=== PATIENT | female | born 1950 | race Caucasian/White ===

== ENCOUNTER 2018-05-07 10:52 | Outpatient (CLI) | payer MEDICARE, OTHER ==
[2018-05-07] MEDS ORDERED: VENL75TA PO (11:41)
[2018-05-07] MEDS ORDERED: ASCO10004 PO (11:41)
[2018-05-07] MEDS ORDERED: LORA1TAB PO (11:41)
[2018-05-07] MEDS ORDERED: CHOL3000 PO (11:41)
[2018-05-07] MEDS ORDERED: ANAS1TAB PO (11:41)
[2018-05-07] MEDS ORDERED: PRAV20TA2 PO (11:41)
[2018-05-07] MEDS ORDERED: CYAN25009 PO (11:41)
[2018-05-07] MEDS ORDERED: TRAM50TA2 PO (11:41)
== END 2018-05-14 09:50 | disposition home or self-care (01) ==
LOC: STAR 10:52
PROVIDERS: ATTEND Neurological Surgery
DX: Z01.818 Encounter for other preprocedural examination (principal); M48.02 Spinal stenosis, cervical region
CPT/HCPCS: 36415; 71046; 72052; 80053; 81001; 85025; 85610; 85730; 87086; 93005

== ENCOUNTER 2018-05-16 10:56 | Inpatient (IN) | payer MEDICARE, OTHER ==
[2018-05-07 12:00] LABS: BASOPHILS # (AUTO) 0.03 x10^3/uL (0-0.1); BASOPHILS % (AUTO) 1 % (0-1); EOSINOPHILS # (AUTO) 0.08 x10^3/uL (0-0.4); EOSINOPHILS % (AUTO) 1 % (1-7); LYMPHOCYTES # (AUTO) 1.69 x10^3/uL (1-3.4); LYMPHOCYTES % (AUTO) 27 % (22-44); MD NO; MEAN CORPUSCULAR HEMOGLOBIN 29.7 pg (27.0-34.8); MEAN CORPUSCULAR HGB CONC 33.3 g/dL (32.4-35.8); MEAN CORPUSCULAR VOLUME 89.2 fL (80-100); MEAN PLATELET VOLUME 7.2 fL (7.4-10.4); MONOCYTES # (AUTO) 0.43 x10^3/uL (0.2-0.8); MONOCYTES % (AUTO) 7 % (2-9); NEUTROPHILS # (AUTO) 4.07 x10^3/uL (1.8-6.8); NEUTROPHILS % (AUTO) 65 % (42-75); PLATELET COUNT 330 x10^3/uL (130-400); RED BLOOD COUNT 4.58 x10^6/uL (3.82-5.3); RED CELL DISTRIBUTION WIDTH 14.3 % (9.6-15.2)
[2018-05-07 12:08] LABS: INTERNATIONAL NORMALIZED RATIO 0.94 (0.93-1.1)
[2018-05-07 12:09] LABS: MICROSCOPIC AUTO
[2018-05-07 12:10] LABS: ALBUMIN 4.2 g/dL (3.4-5.0); ANION GAP 7 mmol/L (5-15); CALCIUM 9.7 mg/dL (8.5-10.1); CHLORIDE 106 mmol/L (98-107)
[2018-05-07 12:14] LABS: ALANINE AMINOTRANSFERASE 34 U/L (12-78); ALKALINE PHOSPHATASE 85 U/L (45-117); BILIRUBIN,TOTAL 0.4 mg/dL (0.2-1.0); CREATININE 0.82 mg/dL (0.55-1.02); TOTAL PROTEIN 7.4 g/dL (6.4-8.2)
[2018-05-07 12:18] LABS: CULTURE INDICATED? YES
[~2018-05-16] VITALS: Ht 170.2 cm; Wt 98.1 kg
[~2018-05-16 10:56] MED LIST: ANAS1TAB PO; ASCO10004 PO; BACITRACIN 50,000 UNIT ONE; BUPIVACAINE/PF-EPI 0.5% 1:200K ONE; CHOL3000 PO; CYAN25009 PO; LORA1TAB PO; PHENYLEPHRINE 10 MG/ML ONE; PRAV20TA2 PO; ROCURONIUM 10MG/ML,5ML ONE; SUCCINYLCHOLINE 20 MG/ML, 10ML ONE; THROMBIN 5,000 UNIT VIAL TP ONE; TRAM50TA2 PO; VANCOMYCIN 1,000 MG ONE; VENL75TA PO
[2018-05-16] MEDS ORDERED: GABAPENTIN 300 MG CAPSULE PO ONE (13:30)
[2018-05-16] MEDS ORDERED: ACETAMINOPHEN 500 MG TABLET PO ONE (13:30)
[2018-05-16] MEDS ORDERED: ONDANSETRON ODT 8 MG PO ONE (13:30)
[2018-05-16 13:40] VITALS: BP 143/77
[2018-05-16] MEDS: LACTATED RINGERS 1,000 ML IV SCH ×2 (14:08→14:13)
[2018-05-16] MEDS ORDERED: FENTANYL PF 250 MCG/5ML ONE (15:44)
[2018-05-16] MEDS ORDERED: MIDAZOLAM 1 MG/ML, 2ML ONE (15:44)
[2018-05-16] MEDS ORDERED: SCOPOLAMINE PATCH, 1.5MG PATCH.TD72 TD PRN (17:00)
[2018-05-16] MEDS ORDERED: hydrALAzine 20 MG/ML, 1ML IV PRN (17:00)
[2018-05-16] MEDS ORDERED: MEPERIDINE/PF 25MG/0.5ML IVPush PRN (17:00)
[2018-05-16] MEDS ORDERED: HYDROmorphone 2 MG/ML, 1ML IVPush PRN (17:00)
[2018-05-16] MEDS ORDERED: PROMETHAZINE 25 MG/ML, 1ML IV PRN (17:00)
[2018-05-16] MEDS ORDERED: EPHEDRINE 50 MG/ML, 1ML IM PRN (17:00)
[2018-05-16] MEDS ORDERED: MIDAZOLAM 1 MG/ML, 2ML IV PRN (17:00)
[2018-05-16] MEDS ORDERED: FENTANYL PF 100 MCG/2ML IV PRN (17:00)
[2018-05-16] MEDS ORDERED: OXYcodone 5 MG/5 ML ORAL.SOL UDC PO PRN (17:00)
[2018-05-16] MEDS ORDERED: ONDANSETRON 2MG/ML, 2ML IV PRN (17:00)
[2018-05-16] MEDS ORDERED: ALBUTEROL/IPRATROPIUM 2.5MG/0.5MG, 3 ML NPPB PRN (17:00)
[2018-05-16] MEDS ORDERED: LABETALOL 5MG/ML, 20ML IV PRN (17:00)
[2018-05-16] MEDS ORDERED: PROPOFOL 50 ML ONE ×3 (17:08→18:22)
[2018-05-16] MEDS ORDERED: CEFAZOLIN 1,000 MG ONE (18:54)
[2018-05-16] MEDS ORDERED: DEXAMETHASONE 4 MG/ML, 1ML ONE ×2 (18:54→19:57)
[2018-05-16] MEDS ORDERED: PROPOFOL 10 MG/ML, 20ML ONE (18:54)
[2018-05-16] MEDS ORDERED: HYDROmorphone 1 MG/ML, 1ML IVPush PRN (19:00)
[2018-05-16] MEDS ORDERED: DIPHENHYDRAMINE 50 MG CAPSULE PO PRN (19:00)
[2018-05-16] MEDS ORDERED: PROMETHAZINE 25 MG/ML, 1ML IM PRN (19:00)
[2018-05-16] MEDS ORDERED: HYDROcodone/APAP 10/325 MG TABLET PO PRN (19:00)
[2018-05-16] MEDS ORDERED: ONDANSETRON 2MG/ML, 2ML IVPush PRN (19:00)
[2018-05-16] MEDS ORDERED: PHARMACY MAY ADJ FOR RENAL FX MC PRN (19:00)
[2018-05-16] MEDS ORDERED: TIZANIDINE 4MG TABLET PO PRN (19:00)
[2018-05-16] MEDS ORDERED: BISACODYL 10 MG SUPP PR PRN (19:00)
[2018-05-16] MEDS ORDERED: CEFAZOLIN PMX 1GM/50ML 50 ML IVPB SCH (19:00)
[2018-05-16] MEDS ORDERED: MAGNESIUM HYDROXIDE 8%, 30ML UDC PO PRN (19:00)
[2018-05-16] MEDS ORDERED: MEPERIDINE/PF 100 MG/ML IM PRN (19:00)
[2018-05-16] MEDS ORDERED: OXYcodone 5 MG/5 ML ORAL.SOL UDC ONE (19:39)
[2018-05-16] MEDS ORDERED: FENTANYL PF 100 MCG/2ML ONE (20:08)
[2018-05-16] MEDS ORDERED: PRAVASTATIN 20 MG TABLET PO SCH (21:00)
[2018-05-16] MEDS: SODIUM CHLORIDE FLUSH 10ML SYR IVF SCH (21:00)
[2018-05-16] MEDS: DEXAMETHASONE 4 MG/ML, 1ML IVPush SCH (22:27)
[2018-05-16] MEDS: CEFAZOLIN PMX 1GM/50ML 50 ML IVPB SCH (22:27)
[2018-05-16] MEDS: NS + 20MEQ KCL 1,000 ML IV SCH (22:27)
[2018-05-17] MEDS: OXYcodone/APAP 5/325MG TABLET PO PRN ×2 (01:09→05:26)
[2018-05-17 02:57] VITALS: BP 127/67
[2018-05-17] MEDS: DEXAMETHASONE 4 MG/ML, 1ML IVPush SCH ×2 (04:37→11:34)
[2018-05-17 04:41] VITALS: BP 134/64
[2018-05-17] MEDS: CEFAZOLIN PMX 1GM/50ML 50 ML IVPB SCH (06:52)
[2018-05-17] MEDS ORDERED: CEFAZOLIN PMX 1GM/50ML 50 ML IV ONE (07:00)
[2018-05-17 08:00] VITALS: BP 121/73
[2018-05-17] MEDS: SODIUM CHLORIDE FLUSH 10ML SYR IVF SCH (08:58)
[2018-05-17] MEDS ORDERED: VENLAFAXINE 75MG TABLET PO SCH (09:00)
[2018-05-17] MEDS ORDERED: SENNA/DOCUSATE TABLET PO SCH (09:00)
[2018-05-17] MEDS ORDERED: LORazepam 1MG TABLET PO SCH (09:00)
[2018-05-17] MEDS ORDERED: ANASTROZOLE 1 MG TABLET PO SCH (09:00)
[2018-05-17] MEDS: NS + 20MEQ KCL 1,000 ML IV SCH (10:00)
[2018-05-17] MEDS ORDERED: OXYC-302 PO (13:15)
[2018-05-17] MEDS ORDERED: TIZA2CAP2 PO (13:16)
[2018-05-17 13:17] VITALS: BP 114/69
== END 2018-05-17 14:43 | disposition home or self-care (01) | DRG 472 ==
LOC: ORIP 12:50 → 4NOR 20:44 → DCLOUNGE 05-17 14:35
PROVIDERS: ADMIT Neurological Surgery; ATTEND Neurological Surgery
PROC: 0RG20A0 Fusion of 2 or more Cervical Vertebral Joints with Interbody Fusion Device, Anterior Approach, Anterior Column, Open Approach (ICD-10-PCS; 2018-05-16)
PROC: 0RB30ZZ Excision of Cervical Vertebral Disc, Open Approach (ICD-10-PCS; principal; 2018-05-16 16:00)
DX: M48.02 Spinal stenosis, cervical region (principal); M47.12 Other spondylosis with myelopathy, cervical region; M25.78 Osteophyte, vertebrae; Z85.3 Personal history of malignant neoplasm of breast; E78.5 Hyperlipidemia, unspecified; F32.9 Major depressive disorder, single episode, unspecified; F41.1 Generalized anxiety disorder
CPT/HCPCS: 36415; 71046; 72040; 72052; 80053; 81001; 85025; 85610; 85730; 87086; C1713; G0378; J0690; J1100; J2250; J2704; J3010; J3370; J3480; Q0162; J0330; J2370; J7120